=== PATIENT | female | born 1995 | race African-American/Black ===

== ENCOUNTER 2016-07-07 22:31 | Emergency (ER) | payer BC ==
[~2016-07-07] VITALS: Ht 162.6 cm; Wt 71.2 kg
[2016-07-07 22:37] VITALS: TEMP 37; Ht 162.6 cm; Wt 71.2 kg
[2016-07-07] MEDS ORDERED: ONDANSETRON 4MG OD TAB PO STA (22:54)
[2016-07-08] MEDS ORDERED: PRED20TA2 PO (00:13)
[2016-07-08] MEDS ORDERED: CYCL10TA6 PO (00:13)
[2016-07-08 00:23] VITALS: BP 133/83; PULSE 78; O2SAT 99
--- NOTE | 2016-07-08 05:10 | EMERGENCY ROOM VISIT NOTE ---
History First contact with patient: 22:44 Chief Complaint: NAUSEA Stated Complaint: MUSCLE SPASMS, NAUSEA, DIZZY Nursing Triage Summary: pt with c/o nausea and some dizziness after taking Tramadol for back spasms. pt seen by chiropractor and [facility]. pt denies injury to back. History of Present Illness The patient is a 20 year old female who presents to the Emergency Room with complaints of back pain ongoing for the past 3-4 weeks. The patient states that she has followed with a chiropractor and with a local urgent care clinic. She states her chiropractor has been doing adjustments every 45 days without relief of symptoms. She went to [facility] yesterday, where she was given a prescription for tramadol. The patient took this medication, and is now experiencing nausea and dizziness. The patient has not had fever, chills, vomiting, chest, or abdominal pain. She denies chance of . She does not report injury or trauma to her back. She has not had imaging of her back. No urinary symptoms. She rates her current discomfort a 7/10. Review of Systems More than 10 systems were reviewed and otherwise negative with the exception of history of present illness. Past Medical/Surgical History No chronic medical disease Family History No pertinent family history Social History Smoking Status: Never Smoker Occupation Status: [employer] Current/Historical Medications Scheduled Cyclobenzaprine Hcl (Flexeril), 10 MG PO TID Prednisone (Prednisone Tab), 2 TAB PO DAILY Allergies Coded Allergies: Shellfish (Verified Allergy, Unknown, UNKNOWN- TESTED POSITIVE, 07/07/16) Uncoded Allergies: TREE NUTS (Allergy, Unknown, UNKNOWN -TESTED POSITIVE, 07/07/16) Physical Exam Vital Signs Date Time Temp Pulse Resp B/P Pulse Ox O2 Delivery O2 Flow Rate FiO2 07/08/16 00:23 78 18 133/83 99 07/07/16 22:37 37.0 82 16 145/97 97 Room Air Pain Rating (0-10): 6.0 Physical Exam VITALS: Vitals are noted on the nurse's note and reviewed by myself. Vital signs stable. GENERAL: Well-developed, well-nourished, black female, who is in no acute distress and resting comfortably. Patient is cooperative with the examination. HEAD: Normocephalic atraumatic. NECK: Supple without nuchal rigidity. No lymphadenopathy. No thyromegaly. Cervical spine is nontender. HEART: Regular rate and rhythm without murmurs gallops or rubs. LUNGS: Clear to auscultation bilaterally without wheezes, rales or rhonchi. No retractions or accessory muscle use. ABDOMEN: Positive normal bowel sounds x 4. Soft, nontender, without masses or organomegaly. No guarding or rebound tenderness. MUSCULOSKELETAL: No muscle atrophy, erythema, or edema noted. There is mild lower lumbar spine tenderness on palpation. No paravertebral spasm. Negative straight leg raise. Full range of motion without joint tenderness in all extremities. No tenderness to palpation. Normal gait. Strength 5/5 throughout. NEURO: Patient was alert and oriented to person place and time. CN II through XII grossly intact. Deep tendon reflexes 2+ throughout. No focal neurological deficits SKIN: The skin was without rashes, erythema, edema, or bruising. Capillary reflex less than 2 seconds. Medical Decision & Procedures Medications Administered Medications (Trade) Dose Ordered Sig/Missy Route Start Time Stop Time Status Last Admin Dose Admin Ondansetron HCl (Zofran Odt) 4 mg NOW STAT PO 07/07/16 22:54 07/07/16 22:56 DC 07/07/16 23:01 4 MG ED Course Physical exam and history were performed. Nursing notes and EMR were reviewed. Patient appears to have low back pain for the past few weeks. She states that she took tramadol today for the first time, and now has nausea and slight lightheadedness. The patient certainly does not appear toxic on examination. She was provided Zofran ODT here in the department. X-rays of the low back were performed and does not show obvious bony abnormality. Overall the patient appears stable for discharge home. I will provide her a short course of prednisone and Flexeril for her back pain. She is to use [id number] analgesics. She should stop the tramadol as she appears to be suffering a medication reaction to this. I did recommend that she follow with [facility] for further care and management. She was otherwise invited back to the ER with any new, worsening, or concerning symptoms. The chart was completed utilizing [employer] Voice Recognition Software. Grammatical errors, random word insertions, pronoun errors, and incomplete sentences are an occasional consequence of this system due to software limitations, ambient noise, and hardware issues. Any formal questions or concerns about the content, text, or information contained within the body of this dictation should be directly addressed to the provider for clarification. . Medical Decision Differential diagnosis: Etiologies such as musculoskeletal, disc herniation, fracture, aortic disease, metastatic disease, cord compression, discitis, infection, renal colic, gastrointestinal, acute exacerbation of chronic back pain, sciatica, cauda equina, as well as others were entertained. Impression Primary Impression: Low back pain Additional Impression: Medication side effect Departure Information Dispostion Home / Self-Care Condition GOOD Prescriptions Cyclobenzaprine Hcl (FLEXERIL) 10 Mg Tab 10 MG PO TID for 5 Days, #15 TAB Prov: Senthil Navarro PA-C 07/08/16 Prednisone (Prednisone Tab) 20 Mg Tab 2 TAB PO DAILY for 5 Days, #10 TAB Prov: Senthil Navarro PA-C 07/08/16 Forms HOME CARE DOCUMENTATION FORM, IMPORTANT VISIT INFORMATION Patient Instructions My [facility] Additional Instructions You were seen and evaluated today on an emergency basis only. This is not a substitute for, or an effort to provide, complete comprehensive medical care. It is not possible to recognize and treat all injuries or illnesses in a single emergency department visit. For this reason it is recommended that you followup with [facility] next week for ongoing care and evaluation. For baseline pain relief you may alternate ibuprofen and acetaminophen every 4 hours for pain control. Take 600 mg ibuprofen (Advil) and then 4 hours later take 1000 mg acetaminophen (Tylenol). Do not take more than 3000 mg acetaminophen in a single day. Take prednisone 40 mg daily for the next 5 days. Take this medication in the morning with food. Flexeril 1 tablet up to 3 times a day as needed for muscle spasms. No driving, working, or alcohol use with Flexeril. You are welcome to return to the emergency department anytime with new, worsening, or concerning symptoms. Problem Qualifiers
--- NOTE | 2016-07-08 07:27 | DIAGNOSTIC IMAGING REPORT ---
LUMBAR SPINE 5 VIEWS CLINICAL HISTORY: Low back pain. FINDINGS: 5 views of the lumbar spine are obtained. No prior studies are available for comparison at the time of dictation. The skeletal structures are well mineralized. There is no radiographic evidence of fracture or malalignment. Vertebral body height and alignment are maintained. The transverse and spinous processes are intact. There is no evidence of spondylolysis. The intervertebral disc spaces are well-maintained. The visualized bony pelvis appears intact. There is a nonobstructed abdominal bowel gas pattern. There is mild colonic fecal retention. IMPRESSION: Unremarkable radiographic evaluation of the lumbosacral spine. Electronically signed by: Martin Griffin M.D. 07/08/2016 7:25 AM Dictated Date/Time: 07/08/2016 7:25 AM
== END 2016-07-08 00:25 | disposition home or self-care (01) ==
LOC: C.EDB 22:34
DX: M54.5 Low back pain (principal); T40.4X5A Adverse effect of other synthetic narcotics, initial encounter; R11.0 Nausea; R42 Dizziness and giddiness